=== PATIENT | female | born 1990 | race Hispanic/Latino ===

== ENCOUNTER → 2022-08-07 | Outpatient (CLI) | payer MEDICAID | END | disposition home or self-care (01) | LOC: RAH 12:42 | PROVIDERS: ATTEND Internal Medicine | DX: I10 Essential (primary) hypertension (principal) | CPT/HCPCS: 93306 ==

== ENCOUNTER 2023-07-17 22:16 | Inpatient (IN) | payer MEDICAID ==
[~2023-07-17] VITALS: Ht 170.2 cm; Wt 95.0 kg
[2023-07-17 23:27] LABS: BILIRUBIN,URINE NEGATIVE (NEGATIVE); COLOR,URINE YELLOW (YELLOW); GLUCOSE, URINE (UA) NEGATIVE (NEGATIVE); KETONES,URINE 20 mg/dL (NEGATIVE); LEUKOCYTE ESTERASE ,URINE 250 Leu/uL (NEGATIVE); NITRATE,URINE NEGATIVE (NEGATIVE); OCCULT BLOOD,URINE NEGATIVE (NEGATIVE); PROTEIN,URINE 30 mg/dL (NEGATIVE)
[2023-07-17 23:29] LABS: HEMATOCRIT 36.1 % (36-48); IMMATURE GRANULOCYTE ABSOLUTE 0.01 K/uL (0-1); LYMPHOCYTES # (AUTO) 0.4 K/uL (1.0-4.8); LYMPHOCYTES % (AUTO) 18.9 % (21.0-51.0); MEAN CORPUSCULAR HEMOGLOBIN 31.6 pg (27.0-33.0); MEAN CORPUSCULAR HGB CONC 33.8 g/dL (32.0-36.0); MEAN CORPUSCULAR VOLUME 93.5 fL (79-99); MONOCYTES # (AUTO) 0.2 K/uL (0.1-1.0); MONOCYTES % (AUTO) 8.3 % (3.0-13.0); NEUTROPHILS # (AUTO) 1.5 K/uL (1.8-7.7); NEUTROPHILS % (AUTO) 72.3 % (40.0-77.0); PLATELET COUNT (AUTO) 111 K/uL (130-400); RED BLOOD CELL COUNT(AUTO) 3.86 MIL/uL (4.00-5.50); RED CELL DISTRIBUTION WIDTH 14.1 % (11.0-15.5); WHITE BLOOD COUNT (AUTO) 2.1 K/uL (4.8-10.8)
[2023-07-17] MEDS: ONDANSETRON 4MG INJ IVP ONE (23:31)
[2023-07-17] MEDS: LACTATED RINGERS 1000ML IV SCH (23:31)
[2023-07-17 23:32] LABS: HCG,QUALITATIVE URINE NEGATIVE (NEGATIVE)
[2023-07-17 23:36] LABS: INFLUENZA TYPE A Negative For Type A (NEGATIVE); INFLUENZA TYPE B Negative For Type B (NEGATIVE)
[2023-07-17 23:39] LABS: ADD UA MICROSCOPIC YES; APPEARANCE,URINE CLOUDY (CLEAR)
[2023-07-17 23:42] LABS: BACTERIA,URINE FEW /HPF (None Seen); MUCUS,URINE RARE LPF (None Seen); SQUAMOUS EPITHELIAL CELL,UR MANY /HPF (0-2); WBC,URINE 26-50 /HPF (0-1)
[2023-07-17 23:47] LABS: SARS-CoV-2, RNA, NAAT NEGATIVE SARS CoV-2 (NEGATIVE)
[2023-07-17] MEDS: IBUPROFEN 600 MG TABLET PO ONE (23:48)
[2023-07-17 23:50] LABS: CREATININE 1.1 mg/dL (0.5-1.5); POTASSIUM 3.1 mmol/L (3.5-5.1)
[2023-07-17 23:55] LABS: ALBUMIN 3.7 g/dL (3.5-5.0); BILIRUBIN,TOTAL 0.5 mg/dL (0.2-1.0); TOTAL PROTEIN, SERUM 7.6 g/dL (6.0-8.3)
[2023-07-18] VITALS (15 sets, daily range): BP systolic 81–128; BP diastolic 43–70; PULSE 62–123; RESP 16–22; O2SAT 95–96
[2023-07-18 00:39] LABS: BAND NEUTROPHILS % (MANUAL) 14 % (0-2); LYMPHOCYTES % (MANUAL) 20 % (22-44); MAN.DIFF COMMENT-IMPRESSION MANUAL DIFFERENTIAL; MONOCYTES % (MANUAL) 10 % (2-9); REACTIVE LYMPHOCYTES 2 % (0-0); SEGMENTED NEUTROPHILS % 54 % (40-70); TOTAL CELLS COUNTED 50
[2023-07-18 00:40] LABS: PLATELET MORPHOLOGY COMMENT SLIGHTLY DECREASED; WBC MORPHOLOGY REACTIVE LYMPHS 1+
[2023-07-18] MEDS: CEFTRIAXONE 1G VIAL IVPB ONE (00:49)
[2023-07-18] MEDS: LACTATED RINGERS 1000ML IV ONE (00:50)
[2023-07-18] MEDS ORDERED: MORPHINE 2 MG SYG IV PRN (01:00)
[2023-07-18] MEDS ORDERED: MAGNESIUM 2GM PREMIX 50ML 50 ML IV PRN (01:00)
[2023-07-18] MEDS: AZITHROMYCIN 500MG+NS 250ML 250 ML IVPB SCH (01:12)
[2023-07-18] MEDS: LACTATED RINGERS 1000ML 1,848 ML IV ONE (01:13)
[2023-07-18] MEDS: SODIUM CHLORIDE 3% FOR INHALATION 4 ML/AMP VIAL.NEB IH ONE (01:26)
[2023-07-18] MEDS: KCL 20 MEQ ERTAB PO PRN (01:41)
[2023-07-18] MEDS: ACETAMINOPHEN 500 MG TABLET PO ONE (01:41)
[2023-07-18] MEDS ORDERED: LAMO200T10 PO (03:47)
[2023-07-18] MEDS ORDERED: ZONI100C87 PO ×2 (03:47)
[2023-07-18] MEDS ORDERED: LACO100T4 PO (03:47)
[2023-07-18] MEDS: ZOSYN 3.375GM+NS 50ML 50 ML IV SCH (05:51)
[2023-07-18 06:04] LABS: HEMATOCRIT 30.5 % (36-48); IMMATURE GRANULOCYTE ABSOLUTE 0.01 K/uL (0-1); LYMPHOCYTES # (AUTO) 0.3 K/uL (1.0-4.8); MEAN CORPUSCULAR HEMOGLOBIN 31.2 pg (27.0-33.0); MEAN CORPUSCULAR HGB CONC 32.1 g/dL (32.0-36.0); MEAN CORPUSCULAR VOLUME 97.1 fL (79-99); MONOCYTES # (AUTO) 0.1 K/uL (0.1-1.0); MONOCYTES % (AUTO) 10.5 % (3.0-13.0); NEUTROPHILS # (AUTO) 0.8 K/uL (1.8-7.7); NEUTROPHILS % (AUTO) 67.7 % (40.0-77.0); PLATELET COUNT (AUTO) 87 K/uL (130-400); RED BLOOD CELL COUNT(AUTO) 3.14 MIL/uL (4.00-5.50); RED CELL DISTRIBUTION WIDTH 14.3 % (11.0-15.5); WHITE BLOOD COUNT (AUTO) 1.2 K/uL (4.8-10.8)
[2023-07-18 06:20] LABS: CREATININE 0.9 mg/dL (0.5-1.5); MAGNESIUM 2.2 mg/dL (1.80-2.40); PHOSPHORUS 3.7 mg/dL (2.5-4.9); POTASSIUM 3.2 mmol/L (3.5-5.1)
[2023-07-18] MEDS: IPRATROPIUM/ALBUTEROL SULFATE 3 ML SOLUTION IH SCH (07:11)
[2023-07-18 08:13] LABS: HIV 1&2 ANTIBODY Non-Reactive (Negative); HIV-1 p24 Antigen Non-Reactive (Negative)
[2023-07-18] MEDS: LACOSAMIDE 100 MG PO SCH (09:00)
[2023-07-18] MEDS ORDERED: ENOXAPARIN SODIUM 40 MG/0.4 ML SYRINGE SQ SCH (09:00)
[2023-07-18] MEDS: FAMOTIDINE 20MG TAB PO SCH (09:06)
[2023-07-18] MEDS: LAMOTRIGINE 100 MG TABLET PO SCH (09:06)
[2023-07-18] MEDS: ONDANSETRON 4MG INJ IV PRN (09:06)
[2023-07-18] MEDS: DOXYCYCLINE 100MG+NS 250ML 250 ML IV SCH (09:06)
[2023-07-18] MEDS: ZONISAMIDE 100 MG CAP PO SCH ×2 (09:08→21:10)
[2023-07-18] MEDS: GUAIFENESIN-DM 200/20 MG 10 ML PO PRN (11:50)
[2023-07-18] MEDS: TBO-FILGRASTIM 480 MCG/0.8 ML ML SQ SCH (13:38)
[2023-07-18] MEDS: ACETAMINOPHEN 325 MG TAB PO PRN (19:40)
[2023-07-19] VITALS (17 sets, daily range): BP systolic 84–110; BP diastolic 42–63; PULSE 68–120; RESP 16–22; O2SAT 92–97
[2023-07-19 05:23] LABS: HEMATOCRIT 31.5 % (36-48); IMMATURE GRANULOCYTE ABSOLUTE 0.43 K/uL (0-1); LYMPHOCYTES # (AUTO) 0.4 K/uL (1.0-4.8); LYMPHOCYTES % (AUTO) 6.9 % (21.0-51.0); MEAN CORPUSCULAR HEMOGLOBIN 31.3 pg (27.0-33.0); MEAN CORPUSCULAR VOLUME 94.9 fL (79-99); MONOCYTES # (AUTO) 0.3 K/uL (0.1-1.0); NEUTROPHILS # (AUTO) 5.1 K/uL (1.8-7.7); NEUTROPHILS % (AUTO) 82.2 % (40.0-77.0); PLATELET COUNT (AUTO) 73 K/uL (130-400); RED BLOOD CELL COUNT(AUTO) 3.32 MIL/uL (4.00-5.50); RED CELL DISTRIBUTION WIDTH 14.3 % (11.0-15.5); WHITE BLOOD COUNT (AUTO) 6.2 K/uL (4.8-10.8)
[2023-07-19 05:30] LABS: CREATININE 0.9 mg/dL (0.5-1.5); POTASSIUM 3.7 mmol/L (3.5-5.1)
[2023-07-19] MEDS: LACTATED RINGERS 1000ML IV ONE (11:43)
[2023-07-19] MEDS ORDERED: VANCOMYCIN PROTOCOL PER PHARMACY IV SCH (13:30)
[2023-07-19] MEDS: VANCOMYCIN 2GM/500 ML BAG 500 ML IV ONE (15:16)
[2023-07-19] MEDS: ACETAMINOPHEN 325 MG TAB PO PRN (23:30)
[2023-07-20] VITALS (9 sets, daily range): BP systolic 108–125; BP diastolic 64–76; PULSE 91–118; RESP 18–22; O2SAT 94–100
[2023-07-20] MEDS: VANCOMYCIN 1.25 GM/250 ML BAG 250 ML IV SCH (05:35)
[2023-07-20 06:48] LABS: BASOPHILS # (AUTO) 0.01 K/uL (0.00-0.20); BASOPHILS % (AUTO) 0.2 % (0.0-5.0); HEMATOCRIT 34.3 % (36-48); IMMATURE GRANULOCYTE ABSOLUTE 0.03 K/uL (0-1); LYMPHOCYTES # (AUTO) 0.3 K/uL (1.0-4.8); LYMPHOCYTES % (AUTO) 6.1 % (21.0-51.0); MEAN CORPUSCULAR HEMOGLOBIN 30.8 pg (27.0-33.0); MEAN CORPUSCULAR HGB CONC 32.1 g/dL (32.0-36.0); MEAN CORPUSCULAR VOLUME 96.1 fL (79-99); MONOCYTES # (AUTO) 0.1 K/uL (0.1-1.0); MONOCYTES % (AUTO) 2.2 % (3.0-13.0); NEUTROPHILS # (AUTO) 4.6 K/uL (1.8-7.7); NEUTROPHILS % (AUTO) 90.9 % (40.0-77.0); PLATELET COUNT (AUTO) 79 K/uL (130-400); RED BLOOD CELL COUNT(AUTO) 3.57 MIL/uL (4.00-5.50); RED CELL DISTRIBUTION WIDTH 14.6 % (11.0-15.5); WHITE BLOOD COUNT (AUTO) 5.1 K/uL (4.8-10.8)
[2023-07-20 07:02] LABS: ALBUMIN 3.1 g/dL (3.5-5.0); BILIRUBIN,TOTAL 0.4 mg/dL (0.2-1.0); CREATININE 0.8 mg/dL (0.5-1.5); POTASSIUM 3.4 mmol/L (3.5-5.1); TOTAL PROTEIN, SERUM 6.7 g/dL (6.0-8.3)
[2023-07-20] MEDS ORDERED: MAGNESIUM 2GM PREMIX 50ML 50 ML IV PRN (13:30)
[2023-07-20] MEDS: 0.9%NACL 1000ML 1,000 ML IV SCH (13:30)
[2023-07-20] MEDS: KETOROLAC 30MG VIAL (30MG/ML) IV PRN (22:14)
[2023-07-21] VITALS (10 sets, daily range): BP systolic 96–129; BP diastolic 59–73; PULSE 81–126; RESP 18–24; O2SAT 94–98
[2023-07-21 05:41] LABS: HEMATOCRIT 31.2 % (36-48); IMMATURE GRANULOCYTE ABSOLUTE 0.01 K/uL (0-1); LYMPHOCYTES # (AUTO) 0.3 K/uL (1.0-4.8); LYMPHOCYTES % (AUTO) 12.6 % (21.0-51.0); MEAN CORPUSCULAR HEMOGLOBIN 31.5 pg (27.0-33.0); MEAN CORPUSCULAR HGB CONC 32.7 g/dL (32.0-36.0); MEAN CORPUSCULAR VOLUME 96.3 fL (79-99); MONOCYTES # (AUTO) 0.1 K/uL (0.1-1.0); MONOCYTES % (AUTO) 5.4 % (3.0-13.0); NEUTROPHILS # (AUTO) 1.8 K/uL (1.8-7.7); NEUTROPHILS % (AUTO) 81.5 % (40.0-77.0); PLATELET COUNT (AUTO) 74 K/uL (130-400); RED BLOOD CELL COUNT(AUTO) 3.24 MIL/uL (4.00-5.50); RED CELL DISTRIBUTION WIDTH 14.7 % (11.0-15.5); WHITE BLOOD COUNT (AUTO) 2.2 K/uL (4.8-10.8)
[2023-07-21 06:02] LABS: ALBUMIN 2.8 g/dL (3.5-5.0); BILIRUBIN,TOTAL 0.4 mg/dL (0.2-1.0); CREATININE 0.8 mg/dL (0.5-1.5); MAGNESIUM 2.1 mg/dL (1.80-2.40); POTASSIUM 3.3 mmol/L (3.5-5.1); TOTAL PROTEIN, SERUM 6.1 g/dL (6.0-8.3); VANCOMYCIN TROUGH 9.8 UG/ML (10.0-20.0)
[2023-07-21 06:23] LABS: BAND NEUTROPHILS % (MANUAL) 16 % (0-2); LYMPHOCYTES % (MANUAL) 16 % (22-44); MAN.DIFF COMMENT-IMPRESSION MANUAL DIFFERENTIAL; MONOCYTES % (MANUAL) 2 % (2-9); PLATELET MORPHOLOGY COMMENT DECREASED; REACTIVE LYMPHOCYTES 1 % (0-0); SEGMENTED NEUTROPHILS % 65 % (40-70); TOTAL CELLS COUNTED 100; WBC MORPHOLOGY BANDS SEEN
[2023-07-21] MEDS: VANCOMYCIN 1.5 GM/250 ML BAG 250 ML IV SCH (06:44)
[2023-07-21] MEDS: POLYETHYLENE GLYCOL 3350 17 GM POWD.PACK PO SCH (09:50)
[2023-07-21] MEDS: LACTULOSE 20 GM/30 ML UDCUP PO SCH (15:26)
[2023-07-21] MEDS: TBO-FILGRASTIM 300 MCG/0.5 ML ML SQ SCH (16:59)
[2023-07-22] VITALS (13 sets, daily range): BP systolic 99–119; BP diastolic 49–70; PULSE 64–130; RESP 18–24; O2SAT 95–98
[2023-07-22 07:06] LABS: BASOPHILS # (AUTO) 0.02 K/uL (0.00-0.20); BASOPHILS % (AUTO) 0.4 % (0.0-5.0); HEMATOCRIT 28.8 % (36-48); LYMPHOCYTES # (AUTO) 0.3 K/uL (1.0-4.8); LYMPHOCYTES % (AUTO) 5.3 % (21.0-51.0); MEAN CORPUSCULAR HEMOGLOBIN 31.3 pg (27.0-33.0); MEAN CORPUSCULAR VOLUME 94.7 fL (79-99); MONOCYTES # (AUTO) 0.2 K/uL (0.1-1.0); MONOCYTES % (AUTO) 3.8 % (3.0-13.0); NEUTROPHILS # (AUTO) 4.6 K/uL (1.8-7.7); PLATELET COUNT (AUTO) 62 K/uL (130-400); RED BLOOD CELL COUNT(AUTO) 3.04 MIL/uL (4.00-5.50); RED CELL DISTRIBUTION WIDTH 14.4 % (11.0-15.5); WHITE BLOOD COUNT (AUTO) 5.5 K/uL (4.8-10.8)
[2023-07-22 07:16] LABS: ALBUMIN 2.5 g/dL (3.5-5.0); BILIRUBIN,TOTAL 0.4 mg/dL (0.2-1.0); CREATININE 0.8 mg/dL (0.5-1.5); TOTAL PROTEIN, SERUM 5.7 g/dL (6.0-8.3)
[2023-07-22 07:22] LABS: POTASSIUM 2.7 mmol/L (3.5-5.1)
[2023-07-22] MEDS: POTASSIUM CHLORIDE 10% ELIXIR 20 MEQ/15 ML UDCUP PO ONE (10:08)
[2023-07-22] MEDS: POTASSIUM CHLORIDE 10% ELIXIR 20 MEQ/15 ML UDCUP PO PRN (18:27)
[2023-07-22] MEDS: FLUTICASONE PROPIONATE 50MCG/SPRAY 16 GM BOTTLE EN SCH (18:31)
[2023-07-22 21:22] LABS: INFLUENZA TYPE A Negative For Type A (NEGATIVE); INFLUENZA TYPE B Negative For Type B (NEGATIVE)
[2023-07-22 21:23] LABS: COVID19 (SARS ANTIGEN RAPID) PRESUMPTIVE NEGATIVE (NEGATIVE)
[2023-07-22] MEDS: BENZONATATE 100 MG CAPSULE PO SCH (22:32)
[2023-07-22] MEDS: ALPRAZOLAM 0.5 MG TABLET PO STA (22:32)
[2023-07-23] VITALS (16 sets, daily range): BP systolic 101–128; BP diastolic 54–72; PULSE 94–130; RESP 18–24; O2SAT 94–98
[2023-07-23] MEDS: MORPHINE 4 MG SYG IV PRN (02:25)
[2023-07-23] MEDS: ACETAMINOPHEN 500 MG TABLET PO PRN (04:04)
[2023-07-23 05:07] LABS: HEMATOCRIT 28.1 % (36-48); IMMATURE GRANULOCYTE ABSOLUTE 0.17 K/uL (0-1); LYMPHOCYTES # (AUTO) 0.3 K/uL (1.0-4.8); MEAN CORPUSCULAR HEMOGLOBIN 31.1 pg (27.0-33.0); MEAN CORPUSCULAR HGB CONC 33.1 g/dL (32.0-36.0); MONOCYTES # (AUTO) 0.1 K/uL (0.1-1.0); MONOCYTES % (AUTO) 4.2 % (3.0-13.0); NEUTROPHILS # (AUTO) 2.3 K/uL (1.8-7.7); NEUTROPHILS % (AUTO) 80.9 % (40.0-77.0); PLATELET COUNT (AUTO) 63 K/uL (130-400); RED BLOOD CELL COUNT(AUTO) 2.99 MIL/uL (4.00-5.50); RED CELL DISTRIBUTION WIDTH 14.8 % (11.0-15.5); WHITE BLOOD COUNT (AUTO) 2.9 K/uL (4.8-10.8)
[2023-07-23 05:20] LABS: ALBUMIN 2.5 g/dL (3.5-5.0); BILIRUBIN,TOTAL 0.4 mg/dL (0.2-1.0); CREATININE 0.9 mg/dL (0.5-1.5); POTASSIUM 3.1 mmol/L (3.5-5.1); TOTAL PROTEIN, SERUM 5.8 g/dL (6.0-8.3)
[2023-07-23] MEDS: VANCOMYCIN 1.75 GM/250 ML BAG 250 ML IV SCH (05:58)
[2023-07-23] MEDS: LORATADINE 10 MG TABLET PO SCH (09:28)
[2023-07-23] MEDS ORDERED: FUROSEMIDE 20MG VIAL IV SCH (15:30)
[2023-07-23] MEDS: MEROPENEM 1 GM in 0.9%NACL 100ML 100 ML IVPB SCH (15:30)
[2023-07-23] MEDS ORDERED: COMPOUND IV MISC 1 EACH IVSOLN MISC PRN (16:00)
[2023-07-23 16:24] LABS: INR 1.06 (0.85-1.15); PROTHROMBIN TIME 12.3 SEC (9.6-11.6)
[2023-07-23] MEDS ORDERED: IPRATROPIUM/ALBUTEROL SULFATE 3 ML SOLUTION IH SCH (18:00)
[2023-07-23] MEDS: POTASSIUM CHLORIDE 10% ELIXIR 20 MEQ/15 ML UDCUP PO ONE (18:35)
[2023-07-23] MEDS: TBO-FILGRASTIM 300 MCG/0.5 ML ML SQ SCH (18:36)
[2023-07-23] MEDS: FUROSEMIDE 20MG VIAL IV ONE (18:36)
[2023-07-23] MEDS: FLUCONAZOLE 200 MG/NS 100 ML 100 ML IV SCH (18:40)
[2023-07-23] MEDS: ACETYLCYSTEINE 10% 100MG/ML 4ML VIAL IH SCH (18:54)
[2023-07-23] MEDS: ALPRAZOLAM 0.5 MG TABLET PO PRN (21:22)
[2023-07-24] VITALS (12 sets, daily range): BP systolic 105–123; BP diastolic 55–80; PULSE 71–131; RESP 19–24; O2SAT 90–94
[2023-07-24 05:57] LABS: BASOPHILS # (AUTO) 0.03 K/uL (0.00-0.20); BASOPHILS % (AUTO) 0.4 % (0.0-5.0); HEMATOCRIT 28.6 % (36-48); IMMATURE GRANULOCYTE ABSOLUTE 0.04 K/uL (0-1); LYMPHOCYTES # (AUTO) 0.2 K/uL (1.0-4.8); LYMPHOCYTES % (AUTO) 2.5 % (21.0-51.0); MEAN CORPUSCULAR HEMOGLOBIN 30.8 pg (27.0-33.0); MEAN CORPUSCULAR HGB CONC 33.2 g/dL (32.0-36.0); MEAN CORPUSCULAR VOLUME 92.9 fL (79-99); MONOCYTES # (AUTO) 0.2 K/uL (0.1-1.0); MONOCYTES % (AUTO) 2.2 % (3.0-13.0); NEUTROPHILS # (AUTO) 6.4 K/uL (1.8-7.7); NEUTROPHILS % (AUTO) 94.3 % (40.0-77.0); PLATELET COUNT (AUTO) 65 K/uL (130-400); RED BLOOD CELL COUNT(AUTO) 3.08 MIL/uL (4.00-5.50); WHITE BLOOD COUNT (AUTO) 6.8 K/uL (4.8-10.8)
[2023-07-24 06:12] LABS: ALBUMIN 2.7 g/dL (3.5-5.0); BILIRUBIN,TOTAL 0.5 mg/dL (0.2-1.0); CREATININE 0.9 mg/dL (0.5-1.5); POTASSIUM 3.4 mmol/L (3.5-5.1); TOTAL PROTEIN, SERUM 6.1 g/dL (6.0-8.3)
[2023-07-24] MEDS: FUROSEMIDE 20MG VIAL IV SCH (08:14)
[2023-07-24] MEDS ORDERED: IBUPROFEN 600 MG TABLET PO PRN (14:30)
[2023-07-24 14:49] LABS: ABG BASE EXCESS 1.4 mmol/L (-2.0-3.0); ABG HCO3 24.5 mmol/L (21.0-28.0); ABG OXYGEN SATURATION 95.8 % (95.0-99.0); ABG PCO2 34 mmHg (32-45); ABG PH 7.471 (7.350-7.450); DEVICE COMMENT RR 2LNC; PO2, ARTERIAL BG 73.8 mmHg (83.0-108.0)
[2023-07-24] MEDS ORDERED: HYDROXYZINE 25 MG TABLET PO PRN (17:30)
[2023-07-24] MEDS: SOLU-MEDROL 40MG VIAL IVP SCH (19:01)
[2023-07-24] MEDS: SOLU-MEDROL 125MG VIAL IVP SCH (20:00)
[2023-07-24] MEDS: TRAZODONE HCL 50 MG TAB PO SCH (20:48)
[2023-07-25] VITALS (11 sets, daily range): BP systolic 104–126; BP diastolic 53–75; PULSE 66–114; RESP 17–22; O2SAT 93–96
[2023-07-25 06:17] LABS: BASOPHILS # (AUTO) 0.01 K/uL (0.00-0.20); BASOPHILS % (AUTO) 0.4 % (0.0-5.0); HEMATOCRIT 28.4 % (36-48); IMMATURE GRANULOCYTE ABSOLUTE 0.03 K/uL (0-1); LYMPHOCYTES # (AUTO) 0.1 K/uL (1.0-4.8); LYMPHOCYTES % (AUTO) 4.9 % (21.0-51.0); MEAN CORPUSCULAR HGB CONC 32.4 g/dL (32.0-36.0); MEAN CORPUSCULAR VOLUME 95.6 fL (79-99); MONOCYTES % (AUTO) 1.1 % (3.0-13.0); NEUTROPHILS # (AUTO) 2.5 K/uL (1.8-7.7); NEUTROPHILS % (AUTO) 92.5 % (40.0-77.0); PLATELET COUNT (AUTO) 52 K/uL (130-400); RED BLOOD CELL COUNT(AUTO) 2.97 MIL/uL (4.00-5.50); RED CELL DISTRIBUTION WIDTH 14.8 % (11.0-15.5); WHITE BLOOD COUNT (AUTO) 2.7 K/uL (4.8-10.8)
[2023-07-25 06:30] LABS: ALBUMIN 2.5 g/dL (3.5-5.0); BILIRUBIN,TOTAL 0.4 mg/dL (0.2-1.0); CREATININE 0.7 mg/dL (0.5-1.5); POTASSIUM 3.7 mmol/L (3.5-5.1)
[2023-07-25 07:47] LABS: ERYTHROCYTE SEDIMENTATION RATE 90 MM/HR (0-20)
[2023-07-25 07:53] LABS: LYMPHOCYTES % (MANUAL) 6 % (22-44); MONOCYTES % (MANUAL) 1 % (2-9); SEGMENTED NEUTROPHILS % 93 % (40-70); TOTAL CELLS COUNTED 100
[2023-07-25 07:58] LABS: MAN.DIFF COMMENT-IMPRESSION MANUAL DIFFERENTIAL
[2023-07-25 07:59] LABS: PLATELET MORPHOLOGY COMMENT MARKED DECREASE; WBC MORPHOLOGY TOXIC GRANULATION 3+
[2023-07-25 19:00] LABS: SARS-CoV-2, RNA, NAAT NEGATIVE SARS CoV-2 (NEGATIVE)
[2023-07-26] VITALS (12 sets, daily range): BP systolic 103–119; BP diastolic 61–86; PULSE 72–113; RESP 18–20; O2SAT 92–98
[2023-07-26 06:11] LABS: HEMATOCRIT 27.4 % (36-48); IMMATURE GRANULOCYTE ABSOLUTE 0.03 K/uL (0-1); LYMPHOCYTES # (AUTO) 0.1 K/uL (1.0-4.8); LYMPHOCYTES % (AUTO) 4.9 % (21.0-51.0); MEAN CORPUSCULAR HEMOGLOBIN 30.9 pg (27.0-33.0); MEAN CORPUSCULAR HGB CONC 33.6 g/dL (32.0-36.0); MEAN CORPUSCULAR VOLUME 91.9 fL (79-99); MONOCYTES # (AUTO) 0.1 K/uL (0.1-1.0); MONOCYTES % (AUTO) 4.1 % (3.0-13.0); NEUTROPHILS # (AUTO) 2.2 K/uL (1.8-7.7); NEUTROPHILS % (AUTO) 89.8 % (40.0-77.0); PLATELET COUNT (AUTO) 58 K/uL (130-400); RED BLOOD CELL COUNT(AUTO) 2.98 MIL/uL (4.00-5.50); RED CELL DISTRIBUTION WIDTH 14.5 % (11.0-15.5); WHITE BLOOD COUNT (AUTO) 2.5 K/uL (4.8-10.8)
[2023-07-26 06:29] LABS: ALBUMIN 2.5 g/dL (3.5-5.0); BILIRUBIN,TOTAL 0.4 mg/dL (0.2-1.0); CREATININE 0.7 mg/dL (0.5-1.5); POTASSIUM 3.2 mmol/L (3.5-5.1); TOTAL PROTEIN, SERUM 5.9 g/dL (6.0-8.3)
[2023-07-26 10:15] LABS: RHEUMATOID ARTHRITIS FACTOR 11.7 IU/mL (<14.0)
[2023-07-26] MEDS: POTASSIUM CHLORIDE 20MEQ/100ML 100 ML IV PRN (17:30)
[2023-07-27] VITALS (13 sets, daily range): BP systolic 105–114; BP diastolic 55–74; PULSE 82–110; RESP 18–30; O2SAT 91–97
[2023-07-27 04:56] LABS: HEMATOCRIT 27.2 % (36-48); IMMATURE GRANULOCYTE ABSOLUTE 0.04 K/uL (0-1); LYMPHOCYTES # (AUTO) 0.1 K/uL (1.0-4.8); LYMPHOCYTES % (AUTO) 8.6 % (21.0-51.0); MEAN CORPUSCULAR HEMOGLOBIN 31.1 pg (27.0-33.0); MEAN CORPUSCULAR HGB CONC 32.4 g/dL (32.0-36.0); MEAN CORPUSCULAR VOLUME 96.1 fL (79-99); MONOCYTES # (AUTO) 0.1 K/uL (0.1-1.0); NEUTROPHILS # (AUTO) 1.3 K/uL (1.8-7.7); NEUTROPHILS % (AUTO) 80.9 % (40.0-77.0); PLATELET COUNT (AUTO) 61 K/uL (130-400); RED BLOOD CELL COUNT(AUTO) 2.83 MIL/uL (4.00-5.50); RED CELL DISTRIBUTION WIDTH 14.5 % (11.0-15.5); WHITE BLOOD COUNT (AUTO) 1.6 K/uL (4.8-10.8)
[2023-07-27 05:11] LABS: ALBUMIN 2.5 g/dL (3.5-5.0); BILIRUBIN,TOTAL 0.5 mg/dL (0.2-1.0); CREATININE 0.8 mg/dL (0.5-1.5); POTASSIUM 3.2 mmol/L (3.5-5.1); TOTAL PROTEIN, SERUM 5.6 g/dL (6.0-8.3)
[2023-07-28] VITALS (13 sets, daily range): BP systolic 18–142; BP diastolic 75–85; PULSE 90–108; RESP 18–32; O2SAT 92–95
[2023-07-28 05:10] LABS: HEMATOCRIT 26.6 % (36-48); IMMATURE GRANULOCYTE ABSOLUTE 0.06 K/uL (0-1); LYMPHOCYTES # (AUTO) 0.1 K/uL (1.0-4.8); LYMPHOCYTES % (AUTO) 9.1 % (21.0-51.0); MEAN CORPUSCULAR HEMOGLOBIN 31.3 pg (27.0-33.0); MEAN CORPUSCULAR HGB CONC 33.1 g/dL (32.0-36.0); MEAN CORPUSCULAR VOLUME 94.7 fL (79-99); MONOCYTES # (AUTO) 0.2 K/uL (0.1-1.0); MONOCYTES % (AUTO) 10.4 % (3.0-13.0); NEUTROPHILS # (AUTO) 1.2 K/uL (1.8-7.7); NEUTROPHILS % (AUTO) 76.6 % (40.0-77.0); PLATELET COUNT (AUTO) 67 K/uL (130-400); RED BLOOD CELL COUNT(AUTO) 2.81 MIL/uL (4.00-5.50); RED CELL DISTRIBUTION WIDTH 14.4 % (11.0-15.5); WHITE BLOOD COUNT (AUTO) 1.5 K/uL (4.8-10.8)
[2023-07-28 05:23] LABS: ALBUMIN 2.5 g/dL (3.5-5.0); BILIRUBIN,TOTAL 0.4 mg/dL (0.2-1.0); CREATININE 0.8 mg/dL (0.5-1.5); POTASSIUM 3.2 mmol/L (3.5-5.1); TOTAL PROTEIN, SERUM 5.6 g/dL (6.0-8.3)
[2023-07-28 05:27] LABS: % IRON SATURATION 55.3 % (22-44)
[2023-07-28] MEDS ORDERED: SOLU-MEDROL 40MG VIAL IVP SCH (13:30)
[2023-07-28 15:10] LABS: DRVVT CONFIRMATION-LUPUS 1.2 ratio (0.8-1.2); DRVVT-LUPUS ANTICOAGULANT 62.4 sec (0.0-47.0)
[2023-07-28] MEDS: ALTEPLASE 2MG VIAL 2 MG/VIAL VIAL IVCATH ONE (21:15)
[2023-07-28] MEDS: PREDNISONE 20 MG TABLET PO SCH (21:16)
[2023-07-28] MEDS: VANCOMYCIN 1.75 GM/250 ML BAG 250 ML IV SCH (23:09)
[2023-07-29] VITALS (13 sets, daily range): BP systolic 100–125; BP diastolic 54–82; PULSE 92–118; RESP 18–24; O2SAT 92–98
[2023-07-29 05:26] LABS: HEMATOCRIT 27.7 % (36-48); IMMATURE GRANULOCYTE ABSOLUTE 0.12 K/uL (0-1); LYMPHOCYTES # (AUTO) 0.1 K/uL (1.0-4.8); LYMPHOCYTES % (AUTO) 2.8 % (21.0-51.0); MEAN CORPUSCULAR HEMOGLOBIN 31.2 pg (27.0-33.0); MEAN CORPUSCULAR HGB CONC 32.1 g/dL (32.0-36.0); MEAN CORPUSCULAR VOLUME 97.2 fL (79-99); MONOCYTES # (AUTO) 0.1 K/uL (0.1-1.0); MONOCYTES % (AUTO) 5.3 % (3.0-13.0); NEUTROPHILS # (AUTO) 2.1 K/uL (1.8-7.7); NUCLEATED RED BLOOD CELLS 1.2 % (0.0-0.19); PLATELET COUNT (AUTO) 73 K/uL (130-400); RED BLOOD CELL COUNT(AUTO) 2.85 MIL/uL (4.00-5.50); RED CELL DISTRIBUTION WIDTH 14.2 % (11.0-15.5); WHITE BLOOD COUNT (AUTO) 2.5 K/uL (4.8-10.8)
[2023-07-29 05:46] LABS: ALBUMIN 2.5 g/dL (3.5-5.0); BILIRUBIN,TOTAL 0.5 mg/dL (0.2-1.0); CREATININE 0.8 mg/dL (0.5-1.5); POTASSIUM 3.7 mmol/L (3.5-5.1); TOTAL PROTEIN, SERUM 5.6 g/dL (6.0-8.3)
[2023-07-29 10:41] LABS: SPOTTED FEVER GROUP IGG <1:64 (Neg:<1:64); SPOTTED FEVER GROUP IGM <1:64 (Neg:<1:64)
[2023-07-30] VITALS (15 sets, daily range): BP systolic 98–138; BP diastolic 62–93; PULSE 71–105; RESP 18–24; TEMP 99.1; O2SAT 95–99
[2023-07-30 12:54] LABS: HEMOGLOBIN A1C 5.8 % (4.0-6.0)
[2023-07-30 15:15] LABS: ATYPICAL P-ANCA AB <1:20 titer (Neg:<1:20); CYTOPLASMIC (C-ANCA) AB, IGG <1:20 titer (Neg:<1:20)
[2023-07-31] VITALS (9 sets, daily range): BP systolic 108–111; BP diastolic 66–75; PULSE 80–114; RESP 17–20; O2SAT 92–97
[2023-07-31 05:31] LABS: HEMATOCRIT 30.2 % (36-48); IMMATURE GRANULOCYTE ABSOLUTE 0.17 K/uL (0-1); LYMPHOCYTES # (AUTO) 0.1 K/uL (1.0-4.8); LYMPHOCYTES % (AUTO) 4.2 % (21.0-51.0); MEAN CORPUSCULAR HEMOGLOBIN 31.1 pg (27.0-33.0); MEAN CORPUSCULAR HGB CONC 32.1 g/dL (32.0-36.0); MEAN CORPUSCULAR VOLUME 96.8 fL (79-99); MONOCYTES # (AUTO) 0.2 K/uL (0.1-1.0); MONOCYTES % (AUTO) 4.9 % (3.0-13.0); NEUTROPHILS # (AUTO) 2.6 K/uL (1.8-7.7); NEUTROPHILS % (AUTO) 85.4 % (40.0-77.0); PLATELET COUNT (AUTO) 82 K/uL (130-400); RED BLOOD CELL COUNT(AUTO) 3.12 MIL/uL (4.00-5.50); RED CELL DISTRIBUTION WIDTH 14.1 % (11.0-15.5); WHITE BLOOD COUNT (AUTO) 3.1 K/uL (4.8-10.8)
[2023-07-31 05:50] LABS: ALBUMIN 2.8 g/dL (3.5-5.0); BILIRUBIN,TOTAL 0.5 mg/dL (0.2-1.0); CREATININE 0.8 mg/dL (0.5-1.5); MAGNESIUM 2.1 mg/dL (1.80-2.40); POTASSIUM 3.9 mmol/L (3.5-5.1); TOTAL PROTEIN, SERUM 5.8 g/dL (6.0-8.3)
== END 2023-07-31 17:45 | DRG 720 ==
LOC: EDH 22:16 → EDHIP 22:17 → 2AH 07-18 03:34 → 3BH 07-18 22:50
PROVIDERS: ADMIT Internal Medicine; ATTEND Internal Medicine
DX: A41.50 Gram-negative sepsis, unspecified (principal); J96.01 Acute respiratory failure with hypoxia; D61.818 Other pancytopenia; E43 Unspecified severe protein-calorie malnutrition; J84.116 Cryptogenic organizing pneumonia; J10.08 Influenza due to other identified influenza virus with other specified pneumonia; Z20.822 Contact with and (suspected) exposure to COVID-19; N39.0 Urinary tract infection, site not specified; E87.6 Hypokalemia; G40.909 Epilepsy, unspecified, not intractable, without status epilepticus; B96.5 Pseudomonas (aeruginosa) (mallei) (pseudomallei) as the cause of diseases classified elsewhere; E66.01 Morbid (severe) obesity due to excess calories; J45.909 Unspecified asthma, uncomplicated; K59.00 Constipation, unspecified; R65.20 Severe sepsis without septic shock; Z68.34 Body mass index [BMI] 34.0-34.9, adult; G31.84 Mild cognitive impairment of uncertain or unknown etiology; F41.9 Anxiety disorder, unspecified; G47.00 Insomnia, unspecified; D63.8 Anemia in other chronic diseases classified elsewhere; K21.9 Gastro-esophageal reflux disease without esophagitis; Z51.5 Encounter for palliative care; Z85.6 Personal history of leukemia; Z86.16 Personal history of COVID-19
CPT/HCPCS: 36415; 36600; 70450; 71045; 71250; 80048; 80053; 80202; 81001; 81025; 82306; 82550; 82728; 82784; 82803; 83036; 83540; 83550; 83605; 83735; 83880; 84100; 84145; 84702; 85025; 85610; 85651; 85732; 86038; 86140; 86147; 86200; 86215; 86235; 86255; 86431; 86701; 86757; 87040; 87071; 87077; 87088; 87186; 87205; 87390; 87426; 87635; 87804; 93306; 93356; 94640; 94664; 94667; 94668; C1894; G0378; J0456; J0696; J1450; J1885; J1940; J2185; J2270; J2405; J2543; J2920; J2930; J2997; J3480; J3490; J7120; J7608; 3370; J1447; J1644; J3370